=== PATIENT | male | born 1935 | race Caucasian/White ===

== ENCOUNTER 2021-04-19 20:12 | Inpatient (IN) | payer OTHER ==
[~2021-04-19] VITALS: Ht 185.4 cm; Wt 115.2 kg
[2021-04-19 20:43] LABS: HEMOGLOBIN 10.1 gm/dl (14.0-17.5); WHITE BLOOD COUNT 7.8 K/UL (4.5-11.0)
[2021-04-20] MEDS ORDERED: LACTULOSE10 GM/151 PO (01:26)
[2021-04-20] MEDS ORDERED: WARFARIN SODIUM5 MG PO (01:28)
[2021-04-20] MEDS ORDERED: ASPIRIN EC81 MG PO (01:29)
[2021-04-20] MEDS ORDERED: CETIRIZINE HCL10 MG PO (01:30)
[2021-04-20] MEDS ORDERED: FEROSUL325 MG PO (01:32)
[2021-04-20] MEDS ORDERED: GLUCOTROL5 MG PO (01:32)
[2021-04-20] MEDS ORDERED: LEVOTHYROXINE150 MCG PO (01:35)
[2021-04-20] MEDS ORDERED: COZAAR 50MG TAB50 MG GT (01:35)
[2021-04-20] MEDS ORDERED: PROTONIX 40 MG40 M1 PO (01:36)
[2021-04-20] MEDS ORDERED: SENNA8.6 MG PO (01:37)
[2021-04-20] MEDS ORDERED: MAXZIDE 37.5/21 EACH GT (01:38)
[2021-04-20] MEDS ORDERED: WARFARIN SODIU7.5 MG PO (01:40)
[2021-04-20] MEDS ORDERED: METOPROLOL TAR100 MG PO (01:41)
[2021-04-20] MEDS ORDERED: INSULIN LI100 UNIT/2 SQ (01:43)
[2021-04-20 04:19] LABS: RED BLOOD COUNT 2.7 M/UL (4.20-5.50); WHITE BLOOD COUNT 9.7 K/UL (4.5-11.0)
[2021-04-21 02:59] LABS: HEMOGLOBIN 8.9 gm/dl (14.0-17.5); RED BLOOD COUNT 2.67 M/UL (4.20-5.50); WHITE BLOOD COUNT 10.1 K/UL (4.5-11.0)
[2021-04-22 06:03] LABS: HEMOGLOBIN 8.6 gm/dl (14.0-17.5); RED BLOOD COUNT 2.58 M/UL (4.20-5.50)
[2021-04-22 13:11] LABS: CREATININE, URINE 56.6 mg/dL (Not Estab.)
[2021-04-23 06:24] LABS: RED BLOOD COUNT 2.73 M/UL (4.20-5.50); WHITE BLOOD COUNT 5.9 K/UL (4.5-11.0)
[2021-04-23 06:55] LABS: BUN/CREATININE RATIO 36 (0-10)
[2021-04-23 16:12] LABS: ORGANISM ID Not indicated. (.); SPECIMEN SOURCE Urine (.); STREPTOCOCCUS PNEUMONIAE AG Negative (Negative)
[2021-04-24 04:52] LABS: HEMOGLOBIN 9.2 gm/dl (14.0-17.5); RED BLOOD COUNT 2.78 M/UL (4.20-5.50); WHITE BLOOD COUNT 5.4 K/UL (4.5-11.0)
[2021-04-24 07:36] LABS: BUN/CREATININE RATIO 41 (0-10)
[2021-04-24 08:14] LABS: COMPLEMENT C3, SERUM 104 mg/dL (82-167)
[2021-04-24 11:14] LABS: ANTI-DSDNA ANTIBODIES <1 IU/mL (0-9)
[2021-04-24 16:14] LABS: A/G RATIO 0.8 (0.7-1.7); ALBUMIN 2.5 g/dL (2.9-4.4); ALPHA-1-GLOBULIN 0.4 g/dL (0.0-0.4); ALPHA-2-GLOBULIN 0.9 g/dL (0.4-1.0); BETA GLOBULIN 0.8 g/dL (0.7-1.3); GAMMA GLOBULIN 1.3 g/dL (0.4-1.8); GLOBULIN, TOTAL 3.4 g/dL (2.2-3.9); IMMUNOFIXATION RESULT, SERUM Comment: (.); IMMUNOGLOBULIN A, QN, SERUM 302 mg/dL (61-437); IMMUNOGLOBULIN G, QN, SERUM 1201 mg/dL (603-1613); IMMUNOGLOBULIN M, QN, SERUM 68 mg/dL (15-143); M-SPIKE Not Observed g/dL (Not Observed); PROTEIN, TOTAL, SERUM 5.9 g/dL (6.0-8.5)
[2021-04-25 04:11] LABS: HEMOGLOBIN 9.5 gm/dl (14.0-17.5); RED BLOOD COUNT 2.91 M/UL (4.20-5.50)
[2021-04-25 04:12] LABS: WHITE BLOOD COUNT 6.9 K/UL (4.5-11.0)
[2021-04-25 04:59] LABS: BUN/CREATININE RATIO 59 (0-10)
[2021-04-26 03:37] LABS: HEMOGLOBIN 9.3 gm/dl (14.0-17.5); RED BLOOD COUNT 2.83 M/UL (4.20-5.50); WHITE BLOOD COUNT 5.6 K/UL (4.5-11.0)
[2021-04-26 03:58] LABS: BUN/CREATININE RATIO 54 (0-10)
--- NOTE | 2021-04-26 15:06 | NUR ---
PT GOT DIZZY WHEN TRIED TO GET UP WITH PT, SO THEY LAID HIM BACK DOWN
[2021-04-27 02:50] LABS: HEMOGLOBIN 9.2 gm/dl (14.0-17.5); RED BLOOD COUNT 2.84 M/UL (4.20-5.50); WHITE BLOOD COUNT 5.1 K/UL (4.5-11.0)
[2021-04-27 03:20] LABS: BUN/CREATININE RATIO 49 (0-10)
[2021-04-27] MEDS ORDERED: COMBIVENT RESPIM4 GM INH (09:18)
[2021-04-27] MEDS ORDERED: LASIX 40 MG TAB40 MG PO (09:18)
== END 2021-04-27 13:52 | DRG 871 ==
LOC: ER1 20:12 → PROG CARE 21:45 → CDU 21:45 → PROG CARE 23:38 → M/S 04-24 18:25
PROVIDERS: Emergency Medicine; Internal Medicine; Internal Medicine Nephrology; ADMIT Internal Medicine
PROC: 3E043XZ Introduction of Vasopressor into Central Vein, Percutaneous Approach (ICD-10-PCS; principal; 2021-04-20)
PROC: B24BZZZ Ultrasonography of Heart with Aorta (ICD-10-PCS; 2021-04-20)
PROC: 3E04329 Introduction of Other Anti-infective into Central Vein, Percutaneous Approach (ICD-10-PCS; 2021-04-20)
PROC: 8E0ZXY6 Isolation (ICD-10-PCS; 2021-04-20)
PROC: 5A09357 Assistance with Respiratory Ventilation, Less than 24 Consecutive Hours, Continuous Positive Airway Pressure (ICD-10-PCS; 2021-04-21)
PROC: 5A0935A Assistance with Respiratory Ventilation, Less than 24 Consecutive Hours, High Flow/Velocity Cannula (ICD-10-PCS; 2021-04-22)
PROC: 5A09357 Assistance with Respiratory Ventilation, Less than 24 Consecutive Hours, Continuous Positive Airway Pressure (ICD-10-PCS; 2021-04-22)
PROC: 5A0935A Assistance with Respiratory Ventilation, Less than 24 Consecutive Hours, High Flow/Velocity Cannula (ICD-10-PCS; 2021-04-23)
PROC: 5A09357 Assistance with Respiratory Ventilation, Less than 24 Consecutive Hours, Continuous Positive Airway Pressure (ICD-10-PCS; 2021-04-23)
PROC: 5A0935A Assistance with Respiratory Ventilation, Less than 24 Consecutive Hours, High Flow/Velocity Cannula (ICD-10-PCS; 2021-04-24)
PROC: 5A09357 Assistance with Respiratory Ventilation, Less than 24 Consecutive Hours, Continuous Positive Airway Pressure (ICD-10-PCS; 2021-04-25)
PROC: 5A09357 Assistance with Respiratory Ventilation, Less than 24 Consecutive Hours, Continuous Positive Airway Pressure (ICD-10-PCS; 2021-04-25)
PROC: 5A09357 Assistance with Respiratory Ventilation, Less than 24 Consecutive Hours, Continuous Positive Airway Pressure (ICD-10-PCS; 2021-04-25)
PROC: 5A09357 Assistance with Respiratory Ventilation, Less than 24 Consecutive Hours, Continuous Positive Airway Pressure (ICD-10-PCS; 2021-04-27)
PROC: 5A0935A Assistance with Respiratory Ventilation, Less than 24 Consecutive Hours, High Flow/Velocity Cannula (ICD-10-PCS; 2021-04-27)
DX: A41.89 Other specified sepsis (principal); U07.1 COVID-19; J12.82 Pneumonia due to coronavirus disease 2019; J96.21 Acute and chronic respiratory failure with hypoxia; J96.22 Acute and chronic respiratory failure with hypercapnia; R57.0 Cardiogenic shock; R65.21 Severe sepsis with septic shock; J15.9 Unspecified bacterial pneumonia; I50.33 Acute on chronic diastolic (congestive) heart failure; E87.1 Hypo-osmolality and hyponatremia; I48.20 Chronic atrial fibrillation, unspecified; E66.2 Morbid (severe) obesity with alveolar hypoventilation; I13.0 Hypertensive heart and chronic kidney disease with heart failure and stage 1 through stage 4 chronic kidney disease, or unspecified chronic kidney disease; E87.3 Alkalosis; Z66 Do not resuscitate; E11.22 Type 2 diabetes mellitus with diabetic chronic kidney disease; E03.9 Hypothyroidism, unspecified; D63.1 Anemia in chronic kidney disease; I27.20 Pulmonary hypertension, unspecified; G47.33 Obstructive sleep apnea (adult) (pediatric); D50.9 Iron deficiency anemia, unspecified; E87.5 Hyperkalemia; L89.152 Pressure ulcer of sacral region, stage 2; N18.30 Chronic kidney disease, stage 3 unspecified; K21.9 Gastro-esophageal reflux disease without esophagitis; E11.40 Type 2 diabetes mellitus with diabetic neuropathy, unspecified; I95.9 Hypotension, unspecified; Y95 Nosocomial condition; E78.5 Hyperlipidemia, unspecified; Z79.01 Long term (current) use of anticoagulants; Z79.82 Long term (current) use of aspirin; Z79.4 Long term (current) use of insulin; Z74.01 Bed confinement status; Z90.49 Acquired absence of other specified parts of digestive tract; Z88.6 Allergy status to analgesic agent; Z88.1 Allergy status to other antibiotic agents; Z88.5 Allergy status to narcotic agent; Z88.0 Allergy status to penicillin; Z88.2 Allergy status to sulfonamides; Z88.8 Allergy status to other drugs, medicaments and biological substances; Z68.33 Body mass index [BMI] 33.0-33.9, adult
CPT/HCPCS: ECHO; 36415; 36600; 71045; 80048; 80053; 80202; 82043; 82436; 82550; 82553; 82570; 82607; 82728; 82746; 82784; 82803; 82962; 83540; 83550; 83605; 83735; 83874; 83880; 84100; 84132; 84155; 84165; 84295; 84300; 84439; 84443; 84484; 84550; 85025; 85027; 85610; 85652; 86140; 86160; 86225; 86334; 87040; 87081; 87278; 87899; 92610; 93005; 93306; 94640; 94660; 94664; 94760; 96374; 96375; 96376; 97110; 97110-GP-CQ; 97162; 97166; 97530; 97530-GP-CQ; 99285; A6212; J0610; J1120; J1160; J1756; J1940; J2185; J2370; J3370; J7030; J7050; J7070; P9047; U0002

== ENCOUNTER 2021-04-27 23:19 | Emergency (ER) | payer OTHER ==
[~2021-04-27 23:19] MED LIST: ASPIRIN EC81 MG PO; CETIRIZINE HCL10 MG PO; COMBIVENT RESPIM4 GM INH; COZAAR 50MG TAB50 MG GT; FEROSUL325 MG PO; GLUCOTROL5 MG PO; INSULIN LI100 UNIT/2 SQ; LACTULOSE10 GM/151 PO; LASIX 40 MG TAB40 MG PO; LEVOTHYROXINE150 MCG PO; MAXZIDE 37.5/21 EACH GT; METOPROLOL TAR100 MG PO; PROTONIX 40 MG40 M1 PO; SENNA8.6 MG PO; WARFARIN SODIU7.5 MG PO; WARFARIN SODIUM5 MG PO
[2021-04-27 23:56] LABS: HEMOGLOBIN 9.4 gm/dl (14.0-17.5); RED BLOOD COUNT 2.86 M/UL (4.20-5.50)
[2021-04-28 00:34] LABS: BUN/CREATININE RATIO 46 (0-10)
== END 2021-04-28 05:15 ==
LOC: ER1 23:19
PROVIDERS: Family Medicine
DX: J96.11 Chronic respiratory failure with hypoxia (principal); D64.9 Anemia, unspecified; I48.91 Unspecified atrial fibrillation; I13.0 Hypertensive heart and chronic kidney disease with heart failure and stage 1 through stage 4 chronic kidney disease, or unspecified chronic kidney disease; E11.40 Type 2 diabetes mellitus with diabetic neuropathy, unspecified; K21.9 Gastro-esophageal reflux disease without esophagitis; E11.22 Type 2 diabetes mellitus with diabetic chronic kidney disease; E78.5 Hyperlipidemia, unspecified; I50.30 Unspecified diastolic (congestive) heart failure; Z20.822 Contact with and (suspected) exposure to COVID-19; Z79.01 Long term (current) use of anticoagulants; Z88.0 Allergy status to penicillin; Z88.2 Allergy status to sulfonamides; Z79.82 Long term (current) use of aspirin; Z66 Do not resuscitate
CPT/HCPCS: 36600; 71045; 80053; 82550; 82553; 82803; 83605; 83880; 84484; 85025; 85610; 87040; 93005; 99284; U0002